=== PATIENT | male | born 1955 | race Caucasian/White ===

== ENCOUNTER 2017-02-27 12:40 | Emergency (ER) | payer BC ==
--- NOTE | 2017-02-27 13:05 | Emergency Department Record ---
History of Present Illness - General Chief Complaint: Back Pain/Injury Stated Complaint: BACK PAIN Time Seen by Provider: 02/27/17 13:01 Source: Patient Mode of Arrival: Ambulatory Limitations: No limitations - History of Present Illness Initial Comments: The patient is here due to worsening of his chronic back pain for the last 2 days. The patient has a long hx of back issues and has had a Lami in 1991. He usually only has mild pain but 2 days ago was gardening and bending a lot and since has developed worse pain in the R lower back. The patient does feels spasms at times and the pain is much worse with movement and bending and twisting. The pain does intermittently radiate down the buttocks to the lateral R thigh. The patient denies any leg numbness, weakness, bowel or bladder incontinence or inability to urinate, or any fever, chills, or IVDA. The pain is much improved when not moving. MD Complaint: Back pain Onset/Timin -: Days(s) Similar Symptoms Previously: No Place: Home, Work Radiation: None Severity: Mild Severity scale (1-10): 10 Quality: Aching, Sharp Consistency: Constant Improves With: None Worsens With: Movement Context: Bending, Turning/twisting, While lifting Associated Symptoms: Denies other symptoms Treatments Prior to Arrival: Prescription analgesics - Related Data Home Medications Medication Instructions Recorded Confirmed Last Taken Bupropion HCl [Wellbutrin Xl] 150 mg PO DAILY 02/27/17 02/27/17 02/27/17 Clonazepam [Klonopin] 0.5 mg PO DAILY 02/27/17 02/27/17 02/27/17 Previous Rx's Medication Instructions Recorded Cyclobenzaprine HCl [Flexeril] 10 mg PO TID PRN #20 tablet 02/27/17 Hydrocodone/Acetaminophen [[place] 1 - 2 each PO QID #20 tablet 02/27/17 5-325 Tablet] Allergies Allergy/AdvReac Type Severity Reaction Status Date / Time morphine Allergy ITCHING Verified 02/27/17 13:04 Penicillins Allergy ITCHING Verified 02/27/17 13:04 Travel Screening - Travel/Exposure Within Last 30 Days Have you traveled within the last 30 days?: No - Travel/Exposure Within Last Year Have you traveled outside the [place] in the last year?: No - Additonal Travel Details Have you been exposed to anyone with a communicable illness?: No - Travel Symptoms Symptom Screening: None Review of Systems Constitutional: Denies: Chills, Fever Eyes: Denies: Eye discharge ENT: Denies: Congestion Respiratory: Denies: Cough, Dyspnea Past Medical History - SOCIAL HISTORY Smoking Status: Current every day smoker Alcohol Use: Rare Drug Use: None - RESPIRATORY Hx Respiratory Disorders: No - CARDIOVASCULAR Hx Cardio Disorders: Yes Hx Deep Vein Thrombosis: Yes Hx Heart Attack: Yes Comment:: IVC filter - NEURO Hx Neuro Disorders: No - GI Hx GI Disorders: Yes Hx of Polyps: Yes - Hx Genitourinary Disorders: Yes Hx Kidney Stones: Yes - ENDOCRINE Hx Endocrine Disorders: No - MUSCULOSKELETAL Hx Musculoskeletal Disorders: Yes - PSYCH Hx Psych Problems: Yes Hx Anxiety: Yes Hx Depression: Yes - HEMATOLOGY/ONCOLOGY Hx Hematology/Oncology Disorders: No Family Medical History Any Significant Family History?: No Hx Diabetes: Father, Mother Hx Heart Disease: Mother Physical Exam - General General Appearance: Alert, Oriented x3, Cooperative, No acute distress - Head Head exam: Atraumatic, Normocephalic, Normal inspection - Eye Eye exam: Normal appearance, PERRL - Neck Neck exam: Normal inspection, Full ROM. negative: Tenderness - Respiratory Respiratory exam: Normal lung sounds bilaterally. negative: Respiratory distress - Cardiovascular Cardiovascular Exam: Regular rate, Normal rhythm, Normal heart sounds - GI/Abdominal GI/Abdominal exam: Soft, Normal bowel sounds. negative: Guarding, Pulsatile mass, Rebound, Rigid, Tenderness - Extremities Extremities exam: Normal inspection, Full ROM, Normal capillary refill. negative: Tenderness - Back Back exam: Reports: Normal inspection, Paraspinal tenderness (The pain is very reproducible with palpation over the R lower lumbar area.). Denies: Muscle spasm, Vertebral tenderness - Neurological Neurological exam: Alert, Normal gait, Reflexes normal. negative: Abnormal gait , Altered, Motor sensory deficit - Skin Skin exam: negative: Rash Course Vital Signs 02/27/17 12:50 Temperature 98.1 F Pulse Rate 76 Respiratory 16 Rate Blood Pressure 150/91 Pulse Ox 96 - Reevaluation(s) Reevaluation #1: The patient is doing better but still does have pain. He does have an appointment with his PCP next week. He is to rest at home and take his pain medicines as directed and return to the ER if worse. 02/27/17 14:32 Reevaluation #2: The patient is doing a little better at this time. He is up walking with minimal pain but no limping. I did explain to him the need for F/U with his PCP and to have the back and urine rechecked. 02/27/17 14:43 Medical Decision Making - Data Complexity MDM Data: Labs Ordered and/or Reviewed, X-Ray Ordered and/or Reviewed - Lab Data Result diagrams: 02/27/17 13:25 02/27/17 13:25 - Radiology Data Radiology results: Report reviewed (LS Spine: multilevel DJD with arthritic changes. No acute changes per Rad.) Disposition Disposition: Discharge Clinical Impression: Lumbar strain Qualifiers: Encounter type: initial encounter Qualified Code(s): S39.012A - Strain of muscle, fascia and tendon of lower back, initial encounter Disposition: Home, Self-Care Condition: (1) Good Instructions: Low Back Strain (ED) Additional Instructions: Please take the [place] and Flexeril as directed. Please see your PCP next week for recheck and also to have your urine rechecked due to the small amount of blood in it. Please return to the ER for any increased pain, leg weakness, numbness, or any bowel or bladder incontinence. Prescriptions: Cyclobenzaprine HCl [Flexeril] 10 mg PO TID PRN #20 tablet PRN Reason: Pain Hydrocodone/Acetaminophen [[place] 5-325 Tablet] 1 - 2 each PO QID #20 tablet Forms: Patient Portal Access Time of Disposition: 14:46 Quality - Quality Measures Quality Measures: N/A - Blood Pressure Screening View Details: Yes Does Patient Have Any of the Following: No Blood Pressure Classification: Pre-Hypertensive BP Reading Systolic Measurement: 139 Diastolic Measurement: 83 Screening for High Blood Pressure: < Pre-Hypertensive BP, F/U Documented > [ G8950] Pre-Hypertensive Follow-up Interventions: Referral to alternative/primary care provider.
[2017-02-27] MEDS ORDERED: KETOROLAC 30 MG/ML VIAL IM ONE (13:17)
[2017-02-27] MEDS ORDERED: ORPHENADRINE CITRATE 60MG/2ML VIAL IM ONE (13:17)
[2017-02-27 13:50] LABS: BASO % 0.4 % (0-6); EOS % 1.6 % (0-6); GRAN % 61.2 % (47-80); HEMATOCRIT 47.4 % (42.0-52.0); LYMPH % 28.5 % (16-45); MEAN CELL VOLUME 89.3 fl (81-97); MEAN CORPUSCULAR HEMOGLOBIN 30.1 pg (27-33); MEAN CORPUSCULAR HGB CONC 33.8 g/dl (32-36); MEAN PLATELET VOLUME 9.9 fl (7.4-10.4); MONO % 8.3 % (0-9); PLATELET COUNT 181 K/uL (130-400); RED BLOOD COUNT 5.31 M/uL (4.40-5.70); RED CELL DISTRIBUTION WIDTH 14.7 % (11.5-14.5); WHITE BLOOD COUNT W/O DIFF 5.1 K/uL (4.2-12.2)
[2017-02-27 14:00] LABS: URINE APPEARANCE CLEAR; URINE BILIRUBIN NEGATIVE (NEGATIVE); URINE BLOOD TRACE-L (NEGATIVE); URINE COLOR YELLOW; URINE GLUCOSE (UA) NEGATIVE (NEGATIVE); URINE KETONE NEGATIVE (NEGATIVE); URINE LEUKOCYTE ESTERASE NEGATIVE (NEGATIVE); URINE NITRITE NEGATIVE (NEGATIVE); URINE PROTEIN NEGATIVE (NEGATIVE); URINE UROBILINOGEN 0.2 E.U./dL (0.20 - 1.00)
[2017-02-27 14:06] LABS: URINE BACTERIA NONE SEEN; URINE EPITHELIAL CELLS NONE SEEN (FEW); URINE WBC NONE SEEN (0-2/hpf)
[2017-02-27 14:07] LABS: ANION GAP 10.2 (7-16); BLOOD UREA NITROGEN 20 mg/dL (9-20); CARBON DIOXIDE 26.8 mmol/L (22-30); EST GLOMERULAR FILTRATION RATE > 60 ml/min; GLUCOSE,RANDOM 108 mg/dL (70-110)
[2017-02-27] MEDS ORDERED: HYDROMORPHONE HCL 2 MG/ML VIAL IM ONE (14:13)
--- NOTE | 2017-02-28 07:10 | RADIOLOGY REPORT ---
DATE: 02/27/2017 at 1:41 p.m. EXAM: LUMBAR SPINE. HISTORY: Right-sided lower back pain radiating into right leg at times. Injured back after bending down and lifting mulch bags. TECHNIQUE: Five views of the lumbar spine. COMPARISON: None. FINDINGS: There is a mild lumbar curve convex to the left. There is narrowing , particularly of the lower two lumbar interspaces, less so elsewhere. Hypertrophic spurring throughout the lumbar spine as well as the visualized lower thoracic spine. The L4-5 interspace is probably partially fused. Mild posterior subluxation of L3 on L4 is likely on a degenerative basis with facet joint arthropathy evident in the lumbar spine. No definite acute fracture of the lumbar spine identified. Numerous calcifications seen in the left kidney likely represent nonobstructing intrarenal calculi currently. IVC filter overlying the right side of the mid lumbar spine. There is probably some prominent bony density along the lateral aspect of the right acetabulum superiorly. IMPRESSION: 1. DIFFUSE DEGENERATIVE CHANGES IN THE LUMBAR SPINE. 2. PARTIAL FUSION OF THE L4-5 INTERSPACE. 3. MILD POSTERIOR SUBLUXATION OF L3 ON L4 APPEARS TO BE ON A DEGENERATIVE BASIS. 4. IVC FILTER IN PLACE. 5. MULTIPLE LEFT RENAL CALCULI ARE LIKELY PRESENT. 6. PROMINENT BONY DENSITY ALONG THE LATERAL ASPECT OF THE RIGHT ACETABULUM SUPERIORLY MAY BE DUE TO OLD INJURY, AND CLINICAL CORRELATION IS SUGGESTED. JOB NUMBER: [id number] [facility]
== END 2017-02-27 15:00 | disposition home or self-care (01) ==
LOC: ER 12:40
DX: S39.012A Strain of muscle, fascia and tendon of lower back, initial encounter (principal); X50.0XXA Overexertion from strenuous movement or load, initial encounter; Y93.H2 Activity, gardening and landscaping; Y92.096 Garden or yard of other non-institutional residence as the place of occurrence of the external cause
CPT/HCPCS: 99283; 96372; 99284; 85025; 80048; 81001; 72110; J1885; J1170; J2360

== ENCOUNTER 2017-12-05 12:52 | Emergency (ER) | payer BC ==
--- NOTE | 2017-12-05 13:45 | Emergency Department Record ---
History of Present Illness - General Chief complaint: Edema Stated complaint: SWELLING ON RT HAND Time Seen by Provider: 12/05/17 13:38 Source: Patient Mode of Arrival: Ambulatory Limitations: No limitations - History of Present Illness Initial comments: 62 yo male presents with RUE swelling. He had a colonscopy at [place] first of the week. Gradually throughout the week he has noted swelling first at the hand then forearm. No fevers. The area itching. No changes in ROM. No new weakness. No history of DVT in the past. PCP is in [place]. 20 years ago he had a DVT after a 20 day ICU stay for accidental overdose. MD Complaint: Extremity swelling Onset/Timin -: Days(s) Location: Right, Hand Severity scale (1-10): 3 Quality: Other Consistency: Constant Improves with: Nothing Worsens with: Exertion Associated Symptoms: Other - Related Data Home Medications Medication Instructions Recorded Confirmed Last Taken Loratadine/Pseudoephedrine 1 tab PO DAILY 12/05/17 12/05/17 Unknown [Claritin-D 24 Hour Tablet] Previous Rx's Medication Instructions Recorded Clindamycin HCl 300 mg PO QID #28 capsule 12/05/17 Allergies Allergy/AdvReac Type Severity Reaction Status Date / Time morphine Allergy ITCHING Unverified 09/05/17 09:16 Penicillins Allergy ITCHING Unverified 09/05/17 09:16 Travel Screening - Travel/Exposure Within Last 30 Days Have you traveled within the last 30 days?: No Review of Systems Constitutional: Denies: Chills, Fever, Weakness Eyes: Denies: Eye discharge ENT: Denies: Congestion, Throat pain Respiratory: Denies: Cough Cardiovascular: Denies: Chest pain, Palpitations, Syncope Endocrine: Denies: Fatigue Gastrointestinal: Denies: Abdominal pain, Diarrhea, Nausea, Vomiting Genitourinary: Denies: Dysuria, Frequency, Hematuria Musculoskeletal: Denies: Arthralgia, Back pain, Joint swelling, Myalgia Skin: Reports: As per HPI, Bruising, Change in color Neurological: Denies: Headache, Numbness, Weakness Psychiatric: Denies: Anxiety Hematological/Lymphatic: Denies: Easy bleeding, Easy bruising, Swollen glands Past Medical History - SOCIAL HISTORY Smoking Status: Current every day smoker Alcohol Use: None Drug Use: None - RESPIRATORY Hx Respiratory Disorders: No - CARDIOVASCULAR Hx Cardio Disorders: Yes Hx Deep Vein Thrombosis: Yes Hx Heart Attack: Yes Comment:: IVC filter - NEURO Hx Neuro Disorders: No - GI Hx GI Disorders: Yes Hx of Polyps: Yes - Hx Genitourinary Disorders: Yes Hx Kidney Stones: Yes - ENDOCRINE Hx Endocrine Disorders: No - MUSCULOSKELETAL Hx Musculoskeletal Disorders: Yes - PSYCH Hx Psych Problems: Yes Hx Anxiety: Yes Hx Depression: Yes - HEMATOLOGY/ONCOLOGY Hx Hematology/Oncology Disorders: No Family Medical History Any Significant Family History?: Yes Hx Diabetes: Father, Mother Hx Heart Disease: Mother Physical Exam - General General Appearance: Alert, Oriented x3, Cooperative, No acute distress Limitations: No limitations - Head Head exam: Atraumatic, Normal inspection - Eye Eye exam: Normal appearance. negative: Scleral icterus - ENT ENT exam: Normal exam Ear exam: Normal external inspection Nasal Exam: Normal inspection Mouth exam: Normal external inspection - Neck Neck exam: Normal inspection - Respiratory Respiratory exam: Normal lung sounds bilaterally. negative: Respiratory distress - Cardiovascular Cardiovascular Exam: Regular rate, Normal rhythm, Normal heart sounds Peripheral Pulses: 2+: Radial (R) - Extremities Extremities exam: negative: Normal inspection, Tenderness Image of Full Body: 1 - mild swelling and erythema of the right hand and forearm, no abnormal warmth, full ROM Image of Hand: 1 - very slight superficial abrasion - Neurological Neurological exam: Alert, Oriented X3 - Psychiatric Psychiatric exam: Normal affect, Normal mood - Skin Skin exam: Erythema Course Vital Signs 12/05/17 13:14 Temperature 98.7 F Pulse Rate 80 Respiratory 18 Rate Blood Pressure 129/72 Pulse Ox 97 - Reevaluation(s) Reevaluation #1: 12/05/17 13:54 Venous doppler ordered of the right hand. 12/05/17 15:05 No evidence on the doppler of DVT He was advised on warm compresses, Keflex, and elevation We discussed reasons to return to the ED as well. Disposition Disposition: Discharge Clinical Impression: Cellulitis Qualifiers: Site of cellulitis: unspecified site Qualified Code(s): L03.90 - Cellulitis, unspecified Disposition: Home, Self-Care Condition: (1) Good Instructions: Cellulitis (ED) Additional Instructions: Keep the arm elevated Warm compress to the forearm twice daily Return or be seen if worse, fever, pain or concerns Prescriptions: Clindamycin HCl 300 mg PO QID #28 capsule Forms: Patient Portal Access Time of Disposition: 15:08 Quality - Quality Measures Quality Measures: N/A - Blood Pressure Screening Does Patient Have Any of the Following: No Blood Pressure Classification: Pre-Hypertensive BP Reading Systolic Measurement: 129 Diastolic Measurement: 72 Screening for High Blood Pressure: < Pre-Hypertensive BP, F/U Documented > [ G8950] Pre-Hypertensive Follow-up Interventions: Referral to alternative/primary care provider.
--- NOTE | 2017-12-06 15:58 | US VENOUS DOPPLER REPORT ---
DATE: 12/06/2017. EXAM: RIGHT UPPER EXTREMITY DUPLEX VENOUS ULTRASOUND. HISTORY: Pain. TECHNIQUE: Transverse and longitudinal sonographic images of the right upper extremity deep venous system. COMPARISON: None. FINDINGS: No visible areas of thrombus formation. Normal compression and augmentation. Doppler and spectral analysis with color flow is utilized. Normal waveforms. IMPRESSION: NEGATIVE EXAMINATION. JOB NUMBER: [id number] [facility]
== END 2017-12-05 15:15 | disposition home or self-care (01) ==
LOC: ER 12:52
DX: L03.113 Cellulitis of right upper limb (principal); F17.210 Nicotine dependence, cigarettes, uncomplicated; Z86.718 Personal history of other venous thrombosis and embolism
CPT/HCPCS: 99283